=== PATIENT | male | born 2000 | race Caucasian/White ===

== ENCOUNTER 2022-06-07 00:30 | Emergency (ER) | payer BC ==
[2022-06-07 00:43] VITALS: BP 110/70; PULSE 99; RESP 18; TEMP 100.3; BMI 18.2
[2022-06-07] MEDS ORDERED: SODIUM CHLORIDE 0.9% 500 ML INFUS.BAG IV ONE ×2 (01:05→02:48)
[2022-06-07 01:58] LABS: HEMATOCRIT 39.3 % (35.4-49); HEMOGLOBIN 13.7 GM/dL (11.7-16.9); MCH 29.2 pg (25.7-33.7); MCHC 34.8 g/dl (32.0-35.9); MEAN PLT VOLUME 10.3 fl (7.5-11.1); PLATELET COUNT 162 10^3/uL (134-434); RBC 4.67 M/mm3 (4.00-5.60); RDW 13.3 % (11.9-15.9); WHITE BLOOD COUNT 4.6 K/mm3 (4.0-10.0)
[2022-06-07 02:18] LABS: CHLORIDE 98 mmol/L (98-107)
[2022-06-07 02:20] LABS: ALBUMIN 3.2 g/dl (3.4-5.0); BLOOD UREA NITROGEN 9.9 mg/dL (7-18); CALCIUM 7.8 mg/dL (8.5-10.1); CO2 23 mmol/L (21-32); MAGNESIUM 2.2 mg/dL (1.8-2.4)
[2022-06-07 02:25] LABS: TOT PROT 8.5 g/dl (6.4-8.2)
[2022-06-07 02:26] LABS: ALK PHOS 75 U/L (45-117)
[2022-06-07 02:38] LABS: ANION GAP 0 MMOL/L (8-16); CREATININE 1.2 mg/dL (0.55-1.3); GLUCOSE,RANDOM 411 mg/dL (74-106); SGOT/AST 151 U/L (15-37); SODIUM 121 mmol/L (136-145)
[2022-06-07] MEDS ORDERED: INSULIN REGULAR HUMAN 100 UNITS/ML *VIAL IVPUSH ONE (02:44)
[2022-06-07] MEDS ORDERED: IBUPROFEN 600 MG TABLET (FP) PO ONE ×2 (02:47→02:54)
[2022-06-07 03:41] LABS: CALCIUM 7.8 mg/dL (8.5-10.1)
[2022-06-07 03:42] LABS: BLOOD UREA NITROGEN 8.9 mg/dL (7-18)
[2022-06-07 05:51] LABS: ANISOCYTOSIS 3+; MACROCYTOSIS 0
== END 2022-06-07 03:56 | disposition home or self-care (01) ==
LOC: JER 00:30
PROC: 3E013VG Introduction of Insulin into Subcutaneous Tissue, Percutaneous Approach (ICD-10-PCS; principal; 2022-06-07)
DX: J09.X2 Influenza due to identified novel influenza A virus with other respiratory manifestations (principal); R50.9 Fever, unspecified; R05.1 Acute cough; J02.9 Acute pharyngitis, unspecified
CPT/HCPCS: 0241U-QW; 36415; 71045-TC-FY; 80048; 80053; 82962; 83735; 85025; 99284-25